=== PATIENT | female | born 1990 | race Caucasian/White ===

== ENCOUNTER → 2023-12-18 | Outpatient (CLI) | payer OTHER ==
--- NOTE | 2023-12-18 13:16 | CT ---
EXAMINATION TYPE: CT sinus wo con DATE OF EXAM: 12/18/2023 COMPARISON: None HISTORY: Chronic maxillary sinusitis. CT DLP: 667.[address] of the paranasal sinuses was performed in the axial and coronal planes. Bone and soft tissue settings are submitted. The paranasal sinuses demonstrate normal aeration and development. Mucosal thickening involving maxillary, ethmoidal, frontal and sphenoid sinuses. Partial obstruction of the bilateral ostiomeatal units. The nasal septum is midline. No bony destructive changes are seen within the field of view. IMPRESSION: Mild Chronic pansinusitis. Partial obstruction of the bilateral ostiomeatal units.
== END | disposition home or self-care (01) ==
LOC: RADCTMAIN 12:12
PROVIDERS: ATTEND Otolaryngology
DX: J32.9 Chronic sinusitis, unspecified (principal); J32.4 Chronic pansinusitis
CPT/HCPCS: 70486

== ENCOUNTER 2024-11-09 04:15 | Inpatient (IN) | payer OTHER ==
[2024-11-09] MEDS ORDERED: CARBOPROST TROMETHAMINE 250 MCG/ML 1 ML AMP IM PRN (04:54)
[2024-11-09] MEDS ORDERED: miSOPROStoL 200 MCG TAB RECTAL PRN (04:54)
[2024-11-09] MEDS ORDERED: TERBUTALINE 1 MG/ML VIAL SQ PRN (04:54)
[2024-11-09] MEDS ORDERED: OXYTOCIN 10 UNIT/ML 1 ML VIAL IM PRN (04:54)
[2024-11-09] MEDS ORDERED: TRANEXAMIC 1,000 MG/100ML-NACL 1,000 MG in EMPTY BAG 1 BAG IV PRN (04:54)
[2024-11-09] MEDS ORDERED: miSOPROStoL 200 MCG TAB PO PRN (04:54)
[2024-11-09] MEDS ORDERED: METHYLERGONOVINE 0.2 MG/ML 1 ML AMP IM PRN (04:54)
[2024-11-09] MEDS ORDERED: OXYTOCIN 30 UNITS/500 ML NS 30 UNIT in SALINE 1 500ML.BAG IV SCH (05:00)
[2024-11-09] MEDS: LACTATED RINGERS 1,000 ML IV SCH (05:08)
[2024-11-09] MEDS: AMPICILLIN 2,000 MG in SODIUM CHLORIDE 0.9% 100 ML IVPB STA (05:10)
[2024-11-09 05:30] LABS: Basophils % (A) 0 %; Eosinophils # (A) 0.1 k/uL (0-0.7); Eosinophils % (A) 1 %; HCT 36.2 % (34.0-46.0); HGB 12.1 gm/dL (11.4-16.0); Lymphocytes # (A) 1.8 k/uL (1.0-4.8); Lymphocytes % (A) 19 %; MCH 29.7 pg (25.0-35.0); MCHC 33.6 g/dL (31.0-37.0); MCV 88.4 fL (80.0-100.0); Mean Platelet Volume 9.3; Monocytes # (A) 0.4 k/uL (0-1.0); Monocytes % (A) 4 %; Neutrophils % (A) 73 %; Platelet Count 175 k/uL (150-450); RBC 4.09 m/uL (3.80-5.40); RDW 14.3 % (11.5-15.5); WBC 9.6 k/uL (3.8-10.6)
[2024-11-09 06:47] VITALS: RESP 16
[2024-11-09] MEDS: AMPICILLIN 1,000 MG in SODIUM CHLORIDE 0.9% 50 ML IVPB SCH (09:10)
[2024-11-09] MEDS: LIDOCAINE 0.5% (PF) 5 MG/ML (50 ML SDV) SQ PRN (09:11)
[2024-11-09] MEDS ORDERED: SIMETHICONE 80 MG CHEWABLE PO PRN (11:53)
[2024-11-09] MEDS ORDERED: HYDROCORTISONE 2.5% RECTAL CREAM 30 GM TUBE RECTAL PRN (11:53)
[2024-11-09] MEDS ORDERED: BENZOCAINE/MENTHOL SPRAY 1 GM/SPRAY AEROSOL TOPICAL PRN (11:53)
[2024-11-09] MEDS ORDERED: diphenhydrAMINE 50 MG/ML 1 ML VIAL IVP PRN ×2 (11:53)
[2024-11-09] MEDS ORDERED: LANOLIN CREAM 1 GM TUBE TOPICAL PRN (11:53)
[2024-11-09] MEDS ORDERED: diphenhydrAMINE 50 MG CAP PO PRN (11:53)
[2024-11-09] MEDS ORDERED: ZOLPIDEM 5 MG TAB PO PRN (11:53)
[2024-11-09] MEDS ORDERED: diphenhydrAMINE 25 MG CAP PO PRN (11:53)
--- NOTE | 2024-11-09 11:53 | P.HPOB ---
History of Present Illness H&P Date: 11/09/24 Chief Complaint: IUP at 40 and 0, active labor 34-year-old 3 para 2 at 40 0/7 weeks presents to labor and delivery in active labor. Patient states she began brent through the night and did note possible rupture of membranes around 215. Patient had a positive AmniSure in triage. Patient was noted to be 2 cm upon admission. Patient has been receiving routine care with myself which has been essentially uncomplicated. Patient did last epidural for analgesia through the night. Patient appears comfortable this morning. On blood work this patient has a blood type of B+, rubella status immune, hepatitis B surface engine negative, HIV negative, RPR is nonreactive, grew beta strep culture positive. Review of Systems Constitutional: Denies chills, Denies fatigue, Denies fever Ears, nose, mouth and throat: Denies headache Cardiovascular: Reports leg edema Respiratory: Denies dyspnea Gastrointestinal: Denies nausea, Denies vomiting Genitourinary: Reports Past Medical History Past Medical History: No Reported History History of Any Multi-Drug Resistant Organisms: None Reported Past Surgical History: Orthopedic Surgery Additional Past Surgical History / Comment(s): Arm surgery 20 years ago Past Anesthesia/Blood Transfusion Reactions: No Reported Reaction Past Psychological History: No Psychological Hx Reported Smoking Status: Never smoker Past Drug Use History: None Reported - Past Family History Mother Family Medical History: Diabetes Mellitus, Hypertension Medications and Allergies Home Medications Medication Instructions Recorded Confirmed Type Cetirizine HCl [Zyrtec] 10 mg PO DAILY 11/09/24 11/09/24 History Vit No.179/Iron/Folic 1 tab PO DAILY 11/09/24 11/09/24 History [ Tablet] Allergies Allergy/AdvReac Type Severity Reaction Status Date / Time No Known Allergies Allergy Verified 11/09/24 04:22 Exam Osteopathic Statement: *. No significant issues noted on an osteopathic structural exam other than those noted in the History and Physical/Consult. Vital Signs Temp Pulse Resp BP Pulse Ox 11/09/24 04:56 97.0 F L 112 H 16 139/80 98 11/09/24 04:44 97.0 F L 112 H 16 139/80 98 Intake and Output 11/08/24 11/09/24 11/09/24 22:59 06:59 14:59 Other: # Voids 1 Weight 88.451 kg Targeted physical exam is performed on stain General Is well-nourished well- developed female in no acute distress, epidural in place, breathing is nonlabored, abdomen is gravid, on cervical exam she is 4/80/-2 station. heart tones are noted to be category 1 and she is brent irregularly. Results Result Diagrams: 11/09/24 05:08 Assessment and Plan (1) Term Current Visit: Yes Status: Acute Code(s): Z34.90 - ENCNTR FOR SUPRVSN OF NORMAL , UNSP, UNSP TRIMESTER SNOMED Code(s): 33482151 (2) Active labor Current Visit: Yes Status: Acute Code(s): BMN0523 - SNOMED Code(s): 318171818 Plan: 4-year-old G3, P2 at 40-0/7 weeks that presents in active labor. Pitocin augmentation of labor has begun secondary to minimal progress through the night. Anticipate spontaneous vaginal delivery this morning.
--- NOTE | 2024-11-09 11:53 | P.PROBDLV ---
Vaginal Delivery Note - . Vaginal Delivery Note: Findings viable female delivered at 1130, weight of 6 pounds 12 ounces, Apgars of 9 and 9 at 1 and 5 minutes respectively. This is a 34-year-old 3 para 2-0-0-2 that presented to labor and delivery with complaints of spontaneous rupture of membranes and contractions. Patient noted rupture of membranes around 215, clear in nature. AmniSure was positive upon presentation. Patient was admitted. Patient was uncomfortable and requested epidural. Epidural was placed without difficulty by the anesthesia department. Patient made minimal change therefore Pitocin augmentation of labor was begun. Patient made good progress toward complete dilation. Once completely dilated patient began pushing and had a normal spontaneous vaginal delivery of a viable female infant at 1130, weight of 6 pounds 12 ounces, Apgars of 9 and 9 at 1 and 5 minutes respectively. A small body cord was delivered through. Patient was noted to be GBS positive and was treated with ampicillin x 2. had a spontaneous cry at , after 2-minute delay the umbilical cord was doubly clamped and cut placenta was delivered spontaneously intact with a three-vessel cord being noted. On inspection the patient's vaginal vault a midline second-degree laceration along with a right labial laceration was appreciated. Vaginal laceration was repaired with 3-0 Rapide in a running locked fashion. The labial laceration was repaired with 4-0 chromic in a running fashion. Hemostasis was noted after closure of both lacerations. Uterus was noted to be firm below the umbilicus, bladder was drained for approximately 100 cc of clear yellow urine. All counts were noted be correct x 2 at the end of the delivery. Patient and infant tolerated delivery well and are resting comfortably.
[2024-11-09] MEDS: IBUPROFEN 800 MG TAB PO SCH (20:24)
[2024-11-09] MEDS: ACETAMINOPHEN TAB 500 MG TAB PO SCH (20:25)
[2024-11-09] MEDS: SENNOSIDES-DOCUSATE SODIUM 1 EACH TAB PO SCH (20:47)
[2024-11-10 02:20] VITALS: TEMP 97.9
[2024-11-10 07:52] VITALS: BP 119/81; PULSE 97
--- NOTE | 2024-11-10 08:42 | P.DS ---
Providers Date of admission: 11/09/24 04:41 Expected date of discharge: 11/10/24 Attending physician: Georgina Brown Primary care physician: Stated None - Discharge Diagnosis(es) (1) Term Current Visit: Yes Status: Acute (2) Active labor Current Visit: Yes Status: Acute (3) Status post normal vaginal delivery Current Visit: Yes Status: Acute (4) Obstetrical laceration, second degree Current Visit: Yes Status: Acute (5) Obstetric labial laceration, delivered, current hospitalization Current Visit: Yes Status: Acute Hospital Course: 34-year-old G3, P2 that presented to labor and delivery with complaints of spontaneous rupture of membranes and contractions on 11/08. Patient had minimal contractions therefore Pitocin augmentation of labor was begun. For full details on this patient please see the dictated history and physical. Patient did receive an epidural for analgesia through labor. Patient made good "progress toward complete dilation and began pushing and had a normal spontaneous vaginal delivery of a viable female at 1130, weight of 6 pounds 12 ounces. Patient did have a second-degree vaginal laceration along with a labial laceration. Both were repaired without difficulty and hemostatic after delivery. Patient's course has been uneventful. In this day #1 she is ambulating and voiding without difficulty. She is tolerating a regular diet without nausea or vomiting. She states her pain is well-controlled. She denies concerns. She would like discharge home at 24 hours if infant is discharged along with mom. Patient Condition at Discharge: Good Plan - Discharge Summary New Discharge Prescriptions: No Action Vit No.179/Iron/Folic [ Tablet] 1 tab PO DAILY Cetirizine HCl [Zyrtec] 10 mg PO DAILY Discharge Medication List Cetirizine HCl [Zyrtec] 10 mg PO DAILY 11/09/24 [History] Vit No.179/Iron/Folic [ Tablet] 1 tab PO DAILY 11/09/24 [History] Follow up Appointment(s)/Referral(s): Georgina Brown DO [Doctor of Osteopathic Medicine] - 12/22/24 1:00 pm Patient Instructions/Handouts: Vaginal Delivery (DC), Vaginal Delivery (GEN) Activity/Diet/Wound Care/Special Instructions: No tub baths or intercourse until 6 weeks . [id number] ibuprofen 600 mg or 3 tablets every 6 hours as needed for pain. Patient is to return to the office for a routine check at 6 weeks. Should she have any concerns prior to this visit she is urged to call the office. Discharge Disposition: HOME SELF-CARE
== END 2024-11-10 12:45 | disposition home or self-care (01) | DRG 807 ==
LOC: FBPOP 04:15 → 4FBP 04:41
PROVIDERS: ADMIT Obstetrics & Gynecology; ATTEND Obstetrics & Gynecology Obstetrics
PROC: 10E0XZZ Delivery of Products of Conception, External Approach (ICD-10-PCS; principal; 2024-11-09)
PROC: 0KQM0ZZ Repair Perineum Muscle, Open Approach (ICD-10-PCS; 2024-11-09)
DX: O42.02 Full-term premature rupture of membranes, onset of labor within 24 hours of rupture (principal); Z37.0 Single live birth; O70.1 Second degree perineal laceration during delivery; O99.824 Streptococcus B carrier state complicating childbirth; Z3A.40 40 weeks gestation of pregnancy
CPT/HCPCS: 59025; 84112; 85025; 86850; 86900; 86901; 99213